=== PATIENT | female | born 1980 | race Hispanic/Latino ===

== ENCOUNTER → 2020-11-27 | Emergency (ER) | payer MEDICAID, OTHER | LOC: EDH 19:46 | DX: O20.9 Hemorrhage in early pregnancy, unspecified (principal) | CPT/HCPCS: 99281 ==

== ENCOUNTER 2020-12-05 21:41 | Emergency (ER) | payer MEDICAID, OTHER ==
[2020-12-05 22:50] LABS: APPEARANCE,URINE Clear (CLEAR); BILIRUBIN,URINE Negative (NEGATIVE); COLOR,URINE Yellow (YELLOW); GLUCOSE, URINE (UA) Negative (NEGATIVE); KETONES,URINE Negative (NEGATIVE); LEUKOCYTE ESTERASE ,URINE Trace (NEGATIVE); NITRATE,URINE Negative (NEGATIVE); OCCULT BLOOD,URINE Negative (NEGATIVE); PH,URINE 7.5 (5.0-8.0); PROTEIN,URINE Negative (NEGATIVE)
[2020-12-05] MEDS ORDERED: KETOROLAC 30MG VIAL (30MG/ML) ONE (22:54)
[2020-12-05] MEDS ORDERED: ORPHENADRINE CITRATE 30 MG/ML ML ONE (22:54)
[2020-12-05] MEDS ORDERED: 0.9%NACL 1000ML 2,000 ML IV ONE (22:55)
[2020-12-05 22:58] LABS: BASOPHILS % (AUTO) 0.4 % (0.0-5.0); EOSINOPHILS % (AUTO) 0.8 % (0.0-8.0); LYMPHOCYTES % (AUTO) 14.6 % (21.0-51.0); MEAN CORPUSCULAR HEMOGLOBIN 24.4 pg (27.0-33.0); MEAN CORPUSCULAR VOLUME 81.3 fL (79-99); MONOCYTES % (AUTO) 5.4 % (3.0-13.0); NEUTROPHILS % (AUTO) 78.3 % (40.0-77.0); PLATELET COUNT (AUTO) 257 K/uL (130-400); RED BLOOD CELL COUNT(AUTO) 4.43 MIL/uL (4.00-5.50); RED CELL DISTRIBUTION WIDTH 15.6 % (11.0-15.5); WHITE BLOOD COUNT (AUTO) 11.1 K/uL (4.8-10.8)
[2020-12-05 23:04] LABS: BACTERIA,URINE None Seen /HPF (None Seen); RBC,URINE None Seen /HPF (0-1); WBC,URINE 0-1 /HPF (0-1)
[2020-12-05 23:05] LABS: SQUAMOUS EPITHELIAL CELL,UR Few /HPF (0-2)
[2020-12-05 23:12] LABS: ALBUMIN 3.6 g/dL (3.5-5.0); BILIRUBIN,TOTAL 0.4 mg/dL (0.2-1.0); CREATININE 0.6 mg/dL (0.5-1.5); POTASSIUM 4.8 mmol/L (3.5-5.1); TOTAL PROTEIN, SERUM 8.5 g/dL (6.0-8.3)
== END 2020-12-06 01:33 | disposition home or self-care (01) ==
LOC: EDH 21:41
DX: E86.0 Dehydration (principal); M62.830 Muscle spasm of back; R51.9 Headache, unspecified; Z98.890 Other specified postprocedural states
CPT/HCPCS: 36415; 80053; 81001; 81025; 84484; 85025; 93005; 96361 ×2; 96374; 96375; 99284; J1885; J2360; J7030

== ENCOUNTER 2022-10-28 11:05 | Emergency (ER) | payer MEDICAID, OTHER ==
[~2022-10-28] VITALS: Ht 157.5 cm; Wt 106.6 kg
[2022-10-28 11:10] VITALS: BP 169/126
[2022-10-28] MEDS ORDERED: CETI10TA57 PO (12:55)
[2022-10-28] MEDS ORDERED: FLUT15.845 NS (12:55)
[2022-10-28] MEDS ORDERED: GUAIF10 PO (12:55)
== END 2022-10-28 13:06 | disposition home or self-care (01) ==
LOC: EDH 11:05
DX: J06.9 Acute upper respiratory infection, unspecified (principal); I10 Essential (primary) hypertension; E78.00 Pure hypercholesterolemia, unspecified; E03.9 Hypothyroidism, unspecified; F41.9 Anxiety disorder, unspecified; Z20.822 Contact with and (suspected) exposure to COVID-19; Z90.49 Acquired absence of other specified parts of digestive tract; Z88.8 Allergy status to other drugs, medicaments and biological substances
CPT/HCPCS: 99285; 71045; 87635; 87880; 87804 ×2; 93005; C9803